=== PATIENT | female | born 1980 | race Hispanic/Latino ===

== ENCOUNTER 2017-04-13 19:13 | Day surgery (SDC) | payer OTHER ==
[2017-04-13 19:57] VITALS: BP 126/59; TEMP 98; BMI 49.1
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
--- NOTE | 2017-04-13 22:42 | PDOC.EVN ---
Event Note - Event Note Event Note: Follow up: History again reviewed with patient. No HX of dystocia with last delivery. She states she "clamped down" as baby was delivering and that resulted in the issue. RH positive blood confirmed. OK for DC home.
== END 2017-04-13 22:30 | disposition home or self-care (01) ==
LOC: L&D/OP 19:13
PROVIDERS: ATTEND Student in an Organized Health Care Education/Training Program
DX: Z04.1 Encounter for examination and observation following transport accident (principal); V49.40XA Driver injured in collision with unspecified motor vehicles in traffic accident, initial encounter; Z3A.30 30 weeks gestation of pregnancy; Z79.899 Other long term (current) drug therapy; Z87.81 Personal history of (healed) traumatic fracture; Z87.891 Personal history of nicotine dependence
CPT/HCPCS: 36415; 86900; 86901; 99282

== ENCOUNTER 2017-06-01 13:44 | Outpatient (CLI) | payer OTHER ==
--- NOTE | 2017-06-01 15:05 | ULT ---
OB ULTRASOUND: Date: 06/01/17 HISTORY: Size and dates. FINDINGS: A single live intrauterine gestation is seen with measurements corresponding to an estimated gestatio nal age of 38 weeks/4 days and RAJI at 06/11/17. The estimated weight measures 3495 gm, or 7 lbs , 11 oz. measurements are as follows: BPD: 9.51 cm, 38 weeks/6 days HC: 33.45 cm, 38 weeks/2 days AC: 34.51 cm, 38 weeks/3 days FL: 7.51 cm, 38 weeks/3 days heart rate measures 153 beats/minute. Placenta is fundal without placenta previa. LARA measures 12.3 cm. IMPRESSION: Single live intrauterine of 38 weeks/4 days estimated gestational age and RAJI at 06/11/17. POS: SLOANE
== END 2017-06-01 13:45 | disposition home or self-care (01) ==
LOC: ULT 13:44
PROVIDERS: ATTEND Nurse Practitioner
DX: O09.893 Supervision of other high risk pregnancies, third trimester (principal); Z3A.38 38 weeks gestation of pregnancy
CPT/HCPCS: 76805

== ENCOUNTER 2017-06-06 05:30 | Inpatient (IN) | payer OTHER ==
--- NOTE | 2017-06-05 20:24 | PDOC.LDHP ---
Labor and Delivery H&P Chief complaint: scheduled induction HPI: 36 yo @ 39w2d by LMP c/w 18 week sono who presents for elective IOL. Pt has a h/o shoulder dystocia with delivery in 2017 (8 lb infant), however, she has delivered multiple macrosomic babies before, largest 9lb 14oz, without complications. Pt was extensively counseled and offered a primary CD. Pt declined and adamantly desires a VD. All R/B/A/I reviewed including 10% risk of recurrence of shoulder dystocia and risk of maternal and injury/. EFW on 06/01/17 was 3495 g. Antepartum course has otherwise been benign. Pt plans for epidural to assist with delivery. Current gestational age (weeks): 39 Due date: 06/11/17 Dating criteria: last menstrual period Grav: 9 Para: 5 OB History Details: 5 term SVDs, several LGA infants. H/O shoulder dystocia with 8 lb infant in 2017 , all other uncomplicated. 2 SABs, 1 EAB. Current complications: none Abnormal US findings: No Past Medical History: Denies Current medications: pre- vitamins Previous surgical history: other (unknown surgery on leg) Allergies/Adverse Reactions: Allergies Allergy/AdvReac Type Severity Reaction Status Date / Time No Known Allergies Allergy Verified 06/06/17 11:41 Social history: none - Physical Exam Vital signs reviewed and normal: yes General: NAD Heart: RRR Lungs: nonlabored breathing Abdomen: gravid Extremeties: no edema FHT: category 2 (150s, mod ted, +accels, small variable decels) [place] contractions every: irregular at this time - pitocin started and IUPC placed - Vaginal Exam cm dilated: 3 (AROM blood tinged. Internal placed ) Effacement: 50% Station: -2 - OB Labs Blood type: AB RH: positive Antibody Screen: negative HIV: negative RPR: negative HEPSAg: negative 1 hour GCT: positive 3 hour GTT: negative GBS: negative Urine drug screen: negative Rubella: immune - Assessment 39w2d IUP H/O shoulder dystocia - Plan Plan: admit to L&D, informed consent obtained, anesthesia consult for pain management -: Reviewed option of PCD vs IOL. Pt adamantly desires IOL. Again reviewed risk of recurrence of shoulder dystocia with pt and maternal and risk associated. Started on pitocin for induction. Internals placed. Prepare for risk of SD and PPH.
[2017-06-06] MEDS ORDERED: Bupivacaine 0.25% HCL 30 ML VIAL ONE (11:11)
[2017-06-06] MEDS: Lactated Ringer's 1,000 ML IV SCH ×3 (11:30→20:05)
[2017-06-06] MEDS ORDERED: LR 500 ML/Oxytocin 10 units 500 ML IV SCH (11:41)
[2017-06-06] MEDS ORDERED: LR / Pitocin 40 units/1000 ml 1,000 ML IV PRN (11:41)
[2017-06-06] MEDS ORDERED: Misoprostol 200 MCG TAB PR PRN (11:41)
[2017-06-06] MEDS ORDERED: Ondansetron HCl/PF 4 MG/2 ML Vial IVP PRN ×2 (11:41→14:51)
[2017-06-06] MEDS ORDERED: Promethazine HCl 25 MG/ML VIAL IM PRN ×2 (11:41→14:51)
[2017-06-06] MEDS ORDERED: Ibuprofen 800 MG TAB PO PRN (11:41)
[2017-06-06] MEDS ORDERED: Diphenoxylate HCl/Atropine Tablet PO PRN (11:41)
[2017-06-06] MEDS ORDERED: Methylergonovine 0.2 MG/ML VIAL IM PRN (11:41)
[2017-06-06] MEDS ORDERED: Carboprost 250 MCG/ML AMP IM PRN (11:41)
[2017-06-06] MEDS ORDERED: Acetaminophen 500 MG TAB PO PRN (11:41)
[2017-06-06] MEDS ORDERED: HYDROcodone/Acetaminophen 5/325 mg Tablet PO PRN (11:41)
[2017-06-06] MEDS ORDERED: Lidocaine 1% (PF) 30 ML VIAL SC PRN (11:41)
[2017-06-06 11:43] VITALS: BMI 50.5
[2017-06-06 12:21] LABS: Hemoglobin 11.6 g/dL (12.0-16.0); Mean Corpuscular HGB CONC 30.7 g/dL (32.0-36.0); Mean Corpuscular Volume 78.3 fl (81.0-99.0); Platelet Count 221 thou/uL (130-400); RBC Distribution Width 15.7 % (11.5-14.5); Red Blood Cell (RBC) Count 4.81 mill/uL (4.20-5.40); White Blood Cell (WBC) Count 11.4 thou/uL (4.8-10.8)
[2017-06-06 13:03] LABS: HBSAg Index 0.12 S/CO (0-0.99); HIV (1/2) Antibody/Antigen Non-Reactive (NonReactive); HIV 1/2 INDEX 0.11 S/CO (<1.00); Hep B Surf Ag Non-Reactive S/CO (NonReactive)
[2017-06-06 13:11] LABS: Syphilis Antibody Nonreactive (Nonreactive); Syphilis Antibody Index 0.04 S/CO (<1.00 Non-Reactive)
[2017-06-06] MEDS ORDERED: Bupivacaine 0.5% 20 ML, Fentanyl 400 MCG in Sodium Chloride 0.9% 72 ML EPIDURAL SCH (13:45)
[2017-06-06] MEDS ORDERED: diphenhydrAMINE 50 MG/ML VIAL IVP PRN (14:51)
[2017-06-06] MEDS ORDERED: ePHEDrine/0.9% NaCl/PF SYRINGE 50 mg/10 ml SLOW IVP PRN (14:51)
[2017-06-06] MEDS ORDERED: Naloxone HCl 0.4 mg/ml Vial IVP PRN ×2 (14:51)
[2017-06-06] MEDS ORDERED: Lactated Ringer's 500 ML IV PRN (14:51)
[2017-06-06] MEDS ORDERED: Acetaminophen 325 MG TAB PO PRN (14:51)
[2017-06-06] MEDS ORDERED: Eucerin (Mineral Oil/Petrolatum,White) 30 gm Jar TOP PRN (14:51)
[2017-06-06] MEDS ORDERED: Fentanyl 4mcg/Marcaine 0.1% Cassette 100 ML EPIDURAL SCH (15:00)
[2017-06-06] MEDS ORDERED: Communication Order-Pharmacy FS SCH (15:00)
[2017-06-06] MEDS ORDERED: Carboprost 250 MCG/ML AMP ONE (19:15)
--- NOTE | 2017-06-06 20:19 | PDOC.OPDEL ---
OB Operative/Delivery Note Delivery Dr/Surgeon: Alix Lawson DO Pre-Delivery Diagnosis: elective induction Procedure/Post Delivery Dx: spontaneous vaginal delivery Weeks gestation: 39 Anesthesia: epidural - Findings A Sex: female Weight: 9 lb 8 oz - 1 min: 9 - 5 min: 10 - Additional Findings/Plan Placenta delivered: spontaneous Repaired Obstetrical Laceration: none Estimated blood loss: 350 cc Compilations/Other Findings: LGA infant delivered in JESSIE position without complication. Cytotec 800 mcg VT placed due to risk of PPH with LGA infant and grandmultiparity. Post delivery plan: routine recovery
--- NOTE | 2017-06-06 20:32 | PRG ---
DATE OF SERVICE: 06/06/2017 LABOR AND DELIVERY NOTE SUMMARY: I was asked by Dr. Lawson to be present for delivery of this patient. This patient is a mu ltiparous patient with a long history of large babies and a history of shoulder dystocia. This patie nt had labored through the day and I was present as she pushed with good effort. A vaginal delivery was accomplished by Dr. Lawson without difficulties and without any evidence of shoulder dystocia. T he cord was clamped and cut and the baby was placed on the warmer. The baby was vigorous and there w ere no problems at delivery.
[2017-06-06] MEDS ORDERED: Lanolin Ointment 7 GM TUBE TOP PRN (22:07)
[2017-06-06] MEDS ORDERED: diphenhydrAMINE 25 MG CAP PO PRN (22:07)
[2017-06-06] MEDS ORDERED: LR / Pitocin 40 units/1000 ml 1,000 ML IV SCH (22:07)
[2017-06-06] MEDS ORDERED: Preparation H Ointment 28 GM TUBE PR PRN (22:07)
[2017-06-06] MEDS ORDERED: Benzocaine/Menthol 20-0.5% 60 ML CAN TOP PRN (22:07)
[2017-06-06] MEDS ORDERED: Milk Of Magnesia 30 ML UDCUP PO PRN (22:07)
[2017-06-06] MEDS ORDERED: Bisacodyl 10 MG SUPP PR PRN (22:07)
[2017-06-06] MEDS ORDERED: Docusate Calcium (SURFAK) 240 MG CAP PO SCH (22:15)
[2017-06-06 22:25] LABS: Hemoglobin 10.8 g/dL (12.0-16.0)
--- NOTE | 2017-06-07 08:35 | PDOC.PP ---
Post Progress Note Post Day #: 1 Subjective: Doing well. Denies complaints. Minimal pain and lochia. Breast and bottle feeding. PO intake tolerated: yes Flatus: yes Ambulation: yes Vital Signs (12 hours) Temp Pulse Resp BP Pulse Ox 06/07/17 08:00 96.6 F L 73 18 128/71 97 06/07/17 04:00 98.9 F 101 H 22 H 06/07/17 00:00 99.1 F 99 22 H 06/06/17 22:00 99.7 F H 104 H 24 H 126/56 L 96 Weight Weight 304 lb - Physical Examination General: NAD Cardiovascular: RRR Respiratory: non-labored breathing Abdominal: no distention, appropriately TTP Fundus firm & at: below umbilicus Extremities: negative homans (B) Neurological: no gross focal deficits Psychiatric: A&Ox3, normal affect Result Diagrams: 06/06/17 22:15 Additional Labs: Post Labs Blood Type AB POSITIVE 06/06/17 11:30 Hep Bs Antigen Non-Reactive S/CO (NonReactive) 06/06/17 11:30 (1) Vaginal delivery Code(s): O80 - ENCOUNTER FOR FULL-TERM UNCOMPLICATED DELIVERY Status: Acute - Assessment/Plan PPD #1, doing well. Plan for d/s this evening with infant. F/U HP 6 weeks.
[2017-06-07] MEDS ORDERED: Prenatal Vitamin 1 TAB PO SCH (09:00)
[2017-06-07] MEDS: traMADol HCl 50 MG TAB PO PRN ×2 (09:04→20:11)
[2017-06-07] MEDS: Docusate Calcium (SURFAK) 240 MG CAP PO SCH ×2 (09:05→20:11)
[2017-06-07 17:31] VITALS: BP 137/71; TEMP 98.4
== END 2017-06-07 21:50 | disposition home or self-care (01) | DRG 775 ==
LOC: L&D 09:58 → 3SW 21:51
PROVIDERS: ADMIT Obstetrics & Gynecology; ATTEND Obstetrics & Gynecology
PROC: 10E0XZZ Delivery of Products of Conception, External Approach (ICD-10-PCS; principal; 2017-06-06)
PROC: 10907ZC Drainage of Amniotic Fluid, Therapeutic from Products of Conception, Via Natural or Artificial Opening (ICD-10-PCS; 2017-06-06)
PROC: 3E033VJ Introduction of Other Hormone into Peripheral Vein, Percutaneous Approach (ICD-10-PCS; 2017-06-06)
PROC: 10H07YZ Insertion of Other Device into Products of Conception, Via Natural or Artificial Opening (ICD-10-PCS; 2017-06-06)
PROC: 4A1H74Z Monitoring of Products of Conception, Cardiac Electrical Activity, Via Natural or Artificial Opening (ICD-10-PCS; 2017-06-06)
DX: O80 Encounter for full-term uncomplicated delivery (principal); Z37.0 Single live birth; Z3A.39 39 weeks gestation of pregnancy
CPT/HCPCS: 36415; 51702; 85027; 86780; 86850; 86900; 86901; 87340; 87389; J2001; J3010; J3490; J7050; S0020

== ENCOUNTER 2018-07-18 22:25 | Emergency (ER) | payer OTHER, SELFPAY ==
[2018-07-18 22:57] LABS: Bilirubin Negative (Negative); Blood, Urine Negative (Negative); Clarity TURBID (Clear); Glucose, Urine (Dipstick) Negative (Negative); Leukocyte Small (Negative); Nitrite Negative (Negative); Protein, Urine (Dipstick) Negative (Neg-Trace); Specific Gravity, Urine 1.024 (1.002-1.036); pH, Urine 6.5 (5.0-9.0)
[2018-07-18 22:58] LABS: Bacteria/HPF 1+ HPF (None Seen); Hyaline Casts/LPF 0-3 HYALINE CAST LPF (0-3 Hyaline)
[2018-07-18 23:39] LABS: #Basophils 0.1 thou/uL (0.0-0.2); #Eosinphils 0.2 thou/uL (0.0-0.7); #Lymphocytes 3.5 thou/uL (1.20-3.40); #Monocytes 0.6 thou/uL (0.11-0.59); #Neutrophils 8.6 thou/uL (1.40-6.50); %Basophils 0.8 % (0.0-1.0); %Eosinophils 1.3 % (0.0-10.0); %Lymphocytes 26.8 % (21.0-51.0); %Monocytes 4.2 % (0.0-10.0); %Neutrophils 66.9 % (42.0-75.0); Hemoglobin 12.9 g/dL (12.0-16.0); Mean Corpuscular Hemoglobin 25.6 pg (27.0-31.0); Mean Corpuscular Volume 82.7 fL (78.0-98.0); Mean Platelet Volume 7.5 fL (7.4-10.4); Platelet Count 283 thou/uL (130-400); RBC Distribution Width 14.8 % (11.5-14.5); Red Blood Cell (RBC) Count 5.05 mill/uL (4.20-5.40); White Blood Cell (WBC) Count 12.9 thou/uL (4.8-10.8)
[2018-07-18 23:52] LABS: ALT (SGPT) 8 U/L (8-55); AST (SGOT) 9 U/L (5-34); Albumin 3.5 g/dL (3.5-5.0); Alkaline Phosphatase 58 U/L (40-150); Anion Gap 11 mmol/L (10-20); BUN (Urea Nitrogen) 12 mg/dL (7.0-18.7); Bilirubin, Total Less than 0.2 mg/dL (0.2-1.2); Calc. Creatinine Clearance 0 mL/min (70-130); Calcium 8.6 mg/dL (7.8-10.44); Carbon Dioxide 23 mmol/L (22-29); Chloride 108 mmol/L (98-107); Estimated GFR-MDRD Greater than 90; Globulin 3.1 g/dL (2.4-3.5); Glucose 168 mg/dL (70-105); Potassium 3.7 mmol/L (3.5-5.1); Protein, Total 6.6 g/dL (6.0-8.3); Sodium 138 mmol/L (136-145)
[2018-07-19 00:40] LABS: Pregnancy Test - Urine (BHCG) Negative (Negative); Pregu Control Background? CLEAR/WHITE (CLR/WHITE); Pregu Control Bar Appear? YES (CONTROL BAR)
[2018-07-19 00:41] LABS: Specific Gravity 1.024 (1.002-1.036)
== END 2018-07-19 01:06 | disposition home or self-care (01) ==
LOC: ERS 22:25
DX: R10.11 Right upper quadrant pain (principal)
CPT/HCPCS: 36415; 80053; 81003; 81015; 81025; 83690; 85025; 87086; 99284

== ENCOUNTER 2019-09-09 10:18 | Emergency (ER) | payer OTHER, SELFPAY ==
[2019-09-09 22:21] LABS: SARS-CoV-2 MS2 Positive; SARS-CoV-2 N Gene Negative; SARS-CoV-2 S Gene Negative; SARS-CoV-2 orf1ab Negative
== END 2019-09-09 11:08 | disposition home or self-care (01) ==
LOC: ERS 10:18
DX: Z20.828 Contact with and (suspected) exposure to other viral communicable diseases (principal)
CPT/HCPCS: 87635; 99283; U0003

== ENCOUNTER 2021-11-25 18:30 | Emergency (ER) | payer OTHER, SELFPAY | END 2021-11-25 21:19 | disposition home or self-care (01) | LOC: ERS 18:30 | DX: J02.9 Acute pharyngitis, unspecified (principal) | CPT/HCPCS: 87081; 87430; 99283 ==

== ENCOUNTER 2022-04-20 07:51 | Emergency (ER) | payer SELFPAY | END 2022-04-20 09:01 | disposition left against medical advice (07) | LOC: ERS 07:51 | DX: Z53.21 Procedure and treatment not carried out due to patient leaving prior to being seen by health care provider (principal) ==

== ENCOUNTER 2023-05-03 16:00 | Emergency (ER) | payer SELFPAY | END 2023-05-03 17:48 | disposition home or self-care (01) | LOC: ERS 16:00 | DX: B34.9 Viral infection, unspecified (principal) | CPT/HCPCS: 87804; 99283 ==

== ENCOUNTER 2024-12-02 15:08 | Outpatient (CLI) | payer BC | END 2024-12-02 15:09 | disposition home or self-care (01) | LOC: BICMAMMO 15:08 | PROVIDERS: ATTEND Family Medicine | DX: Z12.31 Encounter for screening mammogram for malignant neoplasm of breast (principal) | CPT/HCPCS: 77063; 77067 ==

== ENCOUNTER 2025-01-02 08:10 | Emergency (ER) | payer BC ==
[2025-01-02] MEDS ORDERED: Boostrix 0.5 ML (Tdap) VIAL (>/=7 yrs of age) ONE (08:50)
[2025-01-02] MEDS ORDERED: Lidocaine 1% PF 5 ML VIAL ONE (09:02)
[2025-01-02] MEDS ORDERED: Bacitracin 1 PK ONE (10:36)
== END 2025-01-02 10:47 | disposition home or self-care (01) ==
LOC: ERS 08:10
DX: S61.210A Laceration without foreign body of right index finger without damage to nail, initial encounter (principal); E11.9 Type 2 diabetes mellitus without complications; D64.9 Anemia, unspecified; Z23 Encounter for immunization; Z79.84 Long term (current) use of oral hypoglycemic drugs; Z79.899 Other long term (current) drug therapy; W26.0XXA Contact with knife, initial encounter; Y93.89 Activity, other specified
CPT/HCPCS: 12002; 90471; 90715